=== PATIENT | male | born 1990 | race Caucasian/White ===

== ENCOUNTER 2019-11-15 18:03 | Emergency (ER) | payer OTHER, SELFPAY ==
--- NOTE | 2019-11-15 18:54 | EDPHYS ---
Physician Documentation [facility] Name: Scott Phoenix Age: 29 yrs Sex: Male : 1990 Arrival Date: 11/15/2019 Time: 18:07 Bed 5 Private MD: GILBERTO Physician Dyllan Hatch HPI: 11/14 18:50 This 29 yrs old Male presents to ER via Ambulatory with complaints of Leg cp Pain. 18:50 The patient presents with pain, that is acute. The complaints affect the lateral aspect cp of right thigh. Onset: The symptoms/episode began/occurred 2 day(s) ago. Associated signs and symptoms: Pertinent positives: rash, Pertinent negatives fever. Historical: - Allergies: 18:24 No Known Allergies; ca1 - Home Meds: 18:24 citalopram oral [Active]; ca1 - PMHx: 18:24 Depression; ca1 - PSHx: 18:24 None; ca1 - Immunization history:: Adult Immunizations up to date. - Social history:: Smoking status: Reported history of juuling and/or vaping. ROS: 18:50 Constitutional: Negative for body aches, chills, fever, poor PO intake. cp 18:50 Respiratory: Negative for cough, shortness of breath, wheezing. 18:50 Abdomen/GI: Negative for abdominal pain, nausea, vomiting, and diarrhea. 18:50 MS/extremity: Positive for pain, of the lateral aspect of right thigh. 18:50 Skin: Positive for erythema, rash, of the lateral aspect of right thigh, Negative for swelling. 18:50 All other systems are negative. Exam: 18:52 Head/Face: Normocephalic, atraumatic. cp 18:52 Constitutional: The patient appears in no acute distress, alert, awake, non-toxic, well developed, well nourished. 18:52 Cardiovascular: Rate: normal. 18:52 Respiratory: the patient does not display signs of respiratory distress, Respirations: normal. 18:52 Skin: rash can be described as erythematous, pustular by history, on the lateral aspect of right thigh. Vital Signs: 18:20 BP 125 / 85; Pulse 68; Resp 18 S; Temp 98.8(TE); Pulse Ox 100% on R/A; Weight 68.95 kg ca1 (R); Height 5 ft. 11 in. (180.34 cm) (R); Pain 5/10; 18:20 Body Mass Index 21.20 (68.95 kg, 180.34 cm) ca1 MDM: 18:32 Patient medically screened. cp 18:50 Differential diagnosis: cellulitis, abscess, dermatitis, erysipelas, folliculitis. cp 18:54 Data reviewed: vital signs, nurses notes, and as a result, I will discharge patient. 18:54 Counseling: I had a detailed discussion with the patient and/or guardian regarding: the cp historical points, exam findings, and any diagnostic results supporting the discharge/admit diagnosis, to return to the emergency department if symptoms worsen or persist or if there are any questions or concerns that arise at home. Administered Medications: No medications were administered Disposition: 19:05 Chart complete. 11/15 08:09 Co-signature as Attending Physician, Dyllan Hatch MD I agree with the assessment and [facility] plan of care. Disposition: 11/15/19 18:54 Discharged to Home. Impression: Staphylococcal infection, unspecified site. - Condition is Stable. - Discharge Instructions: Staphylococcal Infection. - Prescriptions for Bactroban 2 % Topical Ointment - Apply to affected area 1 application by TOPICAL route every 12 hours; 30 gram. Bactrim DS 800- 160 mg Oral Tablet - take 1 tablet by ORAL route every 12 hours for 7 days; 14 tablet. - Medication Reconciliation Form, Thank You Letter, Antibiotic Education, Prescription Opioid Use form. - Follow up: Private Physician; When: 2 - 3 days; Reason: Worsening of condition. - Problem is new. - Symptoms are unchanged. Signatures: Dyllan Hatch MD MD cha Page, Corey, PA PA Anastasia Schmidt, RN RN tw2 Karly Kumar, RN RN ca1 Corrections: (The following items were deleted from the chart) 11/14 18:59 18:54 11/15/2019 18:54 Discharged to Home. Impression: Staphylococcal infection, tw2 unspecified site. Condition is Stable. Forms are Medication Reconciliation Form, Thank You Letter, Antibiotic Education, Prescription Opioid Use. Follow up: Private Physician; When: 2 - 3 days; Reason: Worsening of condition. Problem is new. Symptoms are unchanged. cp 11/15 16:43 16:36 Differential diagnosis: cellulitis, abscess, dermatitis, erysipelas, folliculitis cp cp
--- NOTE | 2019-11-15 18:54 | ER ---
Nurse's Notes [facility] Name: Scott Phoenix Age: 29 yrs Sex: Male : 1990 Arrival Date: 11/15/2019 Time: 18:07 Bed 5 Private MD: Diagnosis: Staphylococcal infection, unspecified site Presentation: 11/14 18:20 Chief complaint: Patient states: R Mid thigh pain and swelling since 2 - 3 days. Denies ca1 injury. Reports bruise or rash on the area. Coronavirus screen: Client denies travel out of the [place] in the last 14 days. At this time, the client does not indicate any symptoms associated with coronavirus-19. Ebola Screen: Patient negative for fever greater than or equal to 101.5 degrees Fahrenheit, and additional compatible Ebola Virus Disease symptoms Patient denies exposure to infectious person. Patient denies travel to an Ebola-affected area in the 21 days before illness onset. No symptoms or risks identified at this time. Initial Sepsis Screen: Does the patient meet any 2 criteria? No. Patient's initial sepsis screen is negative. Does the patient have a suspected source of infection? No. Patient's initial sepsis screen is negative. Risk Assessment: Do you want to hurt yourself or someone else? Patient reports no desire to harm self or others. Onset of symptoms was November 15, 2019. 18:20 Method Of Arrival: Ambulatory ca1 18:20 Acuity: CRISTOPHER 4 ca1 Historical: - Allergies: 18:24 No Known Allergies; ca1 - Home Meds: 18:24 citalopram oral [Active]; ca1 - PMHx: 18:24 Depression; ca1 - PSHx: 18:24 None; ca1 - Immunization history:: Adult Immunizations up to date. - Social history:: Smoking status: Reported history of juuling and/or vaping. Screenin:49 Abuse screen: Denies threats or abuse. Nutritional screening: No deficits noted. tw2 Tuberculosis screening: No symptoms or risk factors identified. Fall Risk None identified. Assessment: 18:25 General: Appears in no apparent distress. slender, well groomed, Behavior is calm, tw2 cooperative, appropriate for age. Pain: Complains of pain in right quadriceps. Neuro: Level of Consciousness is awake, alert, obeys commands, Oriented to person, place, time, situation. Cardiovascular: Patient's skin is warm and dry. Respiratory: Airway is patent Respiratory effort is even, unlabored, Respiratory pattern is regular, symmetrical. GI: No signs and/or symptoms were reported involving the gastrointestinal system. : No signs and/or symptoms were reported regarding the genitourinary system. EENT: No signs and/or symptoms were reported regarding the EENT system. Derm: Reports increased redness and swelling on the RIGHT upper thigh, "it wan looks like a boil". Musculoskeletal: Range of motion: intact in all extremities. 18:58 Reassessment: Patient appears in no apparent distress at this time. No changes from tw2 previously documented assessment. Patient and/or family updated on plan of care and expected duration. Pain level reassessed. Patient is alert, oriented x 3, equal unlabored respirations, skin warm/dry/pink. Vital Signs: 18:20 BP 125 / 85; Pulse 68; Resp 18 S; Temp 98.8(TE); Pulse Ox 100% on R/A; Weight 68.95 kg ca1 (R); Height 5 ft. 11 in. (180.34 cm) (R); Pain 5/10; 18:20 Body Mass Index 21.20 (68.95 kg, 180.34 cm) ca1 ED Course: 18:07 Patient arrived in ED. mr 18:23 Triage completed. ca1 18:24 Arm band placed on right wrist. ca1 18:25 Placed in gown. Bed in low position. Call light in reach. Pulse ox on. NIBP on. tw2 18:28 [facility]. cp 18:28 Dyllan Hatch MD is Attending Physician. cp 18:44 Anastasia Schmidt, RN is Primary Nurse. tw2 18:58 No provider procedures requiring assistance completed. Patient did not have IV access tw2 during this emergency room visit. Administered Medications: No medications were administered Outcome: 18:54 Discharge ordered by . cp 18:58 Discharged to home ambulatory. tw2 18:58 Condition: stable 18:58 Discharge instructions given to patient, Instructed on discharge instructions, follow up and referral plans. medication usage, Demonstrated understanding of instructions, follow-up care, medications, Prescriptions given X 2. 18:59 Patient left the ED. tw2 Signatures: Ana Guerrero mr Page, Dyllan, PA PA cp Schmidt, Anastasia, RN RN tw2 Acob, Karly, RN RN ca1
[2019-11-15 19:28] VITALS: BP 125/85; TEMP 98.8; O2SAT 100
== END 2019-11-15 18:59 | disposition home or self-care (01) ==
LOC: ER 18:03
DX: R21 Rash and other nonspecific skin eruption (principal); B95.8 Unspecified staphylococcus as the cause of diseases classified elsewhere; F32.9 Major depressive disorder, single episode, unspecified; Z87.891 Personal history of nicotine dependence
CPT/HCPCS: 99283